=== PATIENT | female | born 1950 | race Caucasian/White ===

== ENCOUNTER 2019-03-29 10:59 | Inpatient (IN) | payer OTHER ==
[~2019-03-29] VITALS: Ht 161.3 cm; Wt 90.9 kg
[2019-03-29] MEDS ORDERED: IV NORMAL SALINE 1000ML BAG 1,000 ML IV SCH (11:49)
--- NOTE | 2019-03-29 11:56 | PHYS DOC ---
Past Medical History Past Medical History: Diabetes-Type II, Endometriosis, High Cholesterol, Other Additional Past Medical Histor: incontinence,hemochromatosis Past Surgical History: Other Additional Past Surgical Histo: bilat carpal tunnel,laparoscopy x 2 Alcohol Use: Occasionally Drug Use: None Adult General Chief Complaint Chief Complaint: ABDOMINAL PAIN HPI HPI Patient is a 68 year old Female who presents with right upper quadrant pain and generalized abdominal pain with diarrhea. Patient states she has some nausea but has not vomited. Patient states diarrhea has been going on for months. She states that she has a history of gallstones. Patient states she had a scheduled appointment with Dr. Schulz Wednesday for her gallstones any liver biopsy. Patient states today after she ate Cheerios with [id number] been having this right upper quadrant pain. Patient rates her pain a 10 out of 10. Review of Systems Review of Systems Constitutional: Denies fever or chills [] GI: abdominal pain, nausea, denies vomiting, bloody stools. + diarrhea [] All other systems were reviewed and found to be within normal limits, except as documented in this note. Current Medications Current Medications Current Medications Medications (Trade) Dose Ordered Sig/Denny Start Time Stop Time Status Last Admin Dose Admin Fentanyl Citrate (Fentanyl 2ml Vial) 50 mcg 1X ONCE 03/29/19 12:00 03/29/19 12:01 DC 03/29/19 12:27 50 MCG Info (CONTRAST GIVEN -- Rx MONITORING) 1 each PRN DAILY PRN 03/29/19 13:30 03/31/19 13:29 Iohexol (Omnipaque 300 Mg/ml) 75 ml 1X ONCE 03/29/19 13:30 03/29/19 13:31 DC 03/29/19 13:36 75 ML Ondansetron HCl (Zofran) 4 mg 1X ONCE 03/29/19 12:00 03/29/19 12:01 DC 03/29/19 12:27 4 MG Sodium Chloride 1,000 ml @ 1,000 mls/hr Q1H 03/29/19 11:49 03/29/19 12:48 DC 03/29/19 12:27 1,000 MLS/HR Allergies Allergies Allergies Coded Allergies Type Severity Reaction Last Updated Verified No Known Drug Allergies 03/29/19 No Physical Exam Physical Exam Constitutional: Well developed, well nourished, no acute distress, non-toxic appearance. [] Cardiovascular:Heart rate regular rhythm, no murmur [] Lungs & Thorax: Bilateral breath sounds clear to auscultation [] Abdomen: Bowel sounds normal, soft, RUQ, LUQ tenderness, no masses, no pulsatile masses. [] Skin: Warm, dry, no erythema, no rash. [] Back: No tenderness, no CVA tenderness. [] Extremities: No tenderness, no cyanosis, no clubbing, ROM intact, no edema. [] Neurologic: Alert and oriented X 3, normal motor function, normal sensory function, no focal deficits noted. [] Psychologic: Affect normal, judgement normal, mood normal. [] Current Patient Data Vital Signs Vital Signs Date Time Temp Pulse Resp B/P (MAP) Pulse Ox O2 Delivery O2 Flow Rate FiO2 03/29/19 12:27 20 96 Room Air 03/29/19 11:20 98.4 72 148/58 (88) 98.4 Lab Values Laboratory Tests Test 03/29/19 12:40 03/29/19 13:27 White Blood Count 7.9 x10^3/uL (4.0-11.0) Red Blood Count 4.20 x10^6/uL (3.50-5.40) Hemoglobin 13.3 g/dL (12.0-15.5) Hematocrit 39.4 % (36.0-47.0) Mean Corpuscular Volume 94 fL (79-100) Mean Corpuscular Hemoglobin 32 pg (25-35) Mean Corpuscular Hemoglobin Concent 34 g/dL (31-37) Red Cell Distribution Width 13.5 % (11.5-14.5) Platelet Count 92 x10^3/uL (140-400) L Neutrophils (%) (Auto) 75 % (31-73) H Lymphocytes (%) (Auto) 17 % (24-48) L Monocytes (%) (Auto) 6 % (0-9) Eosinophils (%) (Auto) 2 % (0-3) Basophils (%) (Auto) 1 % (0-3) Neutrophils # (Auto) 5.9 x10^3/uL (1.8-7.7) Lymphocytes # (Auto) 1.3 x10^3/uL (1.0-4.8) Monocytes # (Auto) 0.5 x10^3/uL (0.0-1.1) Eosinophils # (Auto) 0.1 x10^3/uL (0.0-0.7) Basophils # (Auto) 0.0 x10^3/uL (0.0-0.2) Sodium Level 142 mmol/L (136-145) Potassium Level 3.9 mmol/L (3.5-5.1) Chloride Level 105 mmol/L (98-107) Carbon Dioxide Level 22 mmol/L (21-32) Anion Gap 15 (6-14) H Blood Urea Nitrogen 16 mg/dL (7-20) Creatinine 0.9 mg/dL (0.6-1.0) Estimated GFR (Cockcroft-Gault) 62.1 BUN/Creatinine Ratio 18 (6-20) Glucose Level 224 mg/dL (70-99) H Calcium Level 8.8 mg/dL (8.5-10.1) Total Bilirubin 0.8 mg/dL (0.2-1.0) Aspartate Amino Transferase (AST) 29 U/L (15-37) Alanine Aminotransferase (ALT) 39 U/L (14-59) Alkaline Phosphatase 61 U/L (46-116) Troponin I Quantitative < 0.017 ng/mL (0.000-0.055) Total Protein 7.4 g/dL (6.4-8.2) Albumin 3.4 g/dL (3.4-5.0) Albumin/Globulin Ratio 0.9 (1.0-1.7) L Lipase 88 U/L (73-393) Urine Collection Type Unknown Urine Color Yellow Urine Clarity Clear Urine pH 5.0 Urine Specific Caspar 1.020 Urine Protein Negative mg/dL (NEG-TRACE) Urine Glucose (UA) 250 mg/dL (NEG) Urine Ketones (Stick) Negative mg/dL (NEG) Urine Blood Negative (NEG) Urine Nitrite Negative (NEG) Urine Bilirubin Negative (NEG) Urine Urobilinogen Dipstick 0.2 mg/dL (0.2 mg/dL) Urine Leukocyte Esterase Moderate (NEG) Urine RBC 0 /HPF (0-2) Urine WBC 5-10 /HPF (0-4) Urine Squamous Epithelial Cells Many /LPF Urine Bacteria Many /HPF (0-FEW) Urine Hyaline Casts Occasional /HPF Urine Mucus Marked /LPF Laboratory Tests 03/29/19 12:40 Laboratory Tests 03/29/19 12:40 EKG EKG Sinus Rhythm and no STEMI[] Interpretation Time: [address] Kirby Radiology/Procedures Radiology/Procedures [] Impressions: [facility] [address] [place] [address] IMAGING REPORT Signed PATIENT: ONEL RIOS ACCOUNT: [id number] : 1950 LOCATION: ER AGE: 68 SEX: F EXAM STATUS: REG ER ORD. PHYSICIAN: COLUMBA BLACKMON APRN REASON: PAIN RUQ AND LUQ, HX GALL STONES PROCEDURE: CT ABD PELV W/ IV CONTRST ONLY CT ABD PELV W/ IV CONTRST ONLY Indication: Right upper quadrant and left upper quadrant pain, history of gallstones Technique: Postcontrast CT imaging was performed of the abdomen pelvis, multiplanar reconstruction images submitted. No oral contrast was given. One or more of the following individualized dose reduction techniques were utilized for this examination: 1. Automated exposure control 2. Adjustment of the mA and/or kV according to patient size 3. Use of iterative reconstruction technique. Comparison: None Findings: There is appearance of enhancement of gallbladder montaño with adjacent pericholecystic fluid. There are some small calcified gallstones present. There is mild hazy change of the more central superior retroperitoneal fat as about the celiac axis. There is no focal defined fluid collection in this region. There is mild hazy and strandy change of the mesenteric fat, also of the paracolic gutters greater on the right. There is very minimal perihepatic free fluid. There is slightly nodular margin of the liver. Spleen is enlarged about 14 x 10.9 x 6.5 cm. Evaluation of bowel is limited without oral contrast. There is appearance of long segment small bowel wall thickening such as in the left abdomen, also appearance of wall thickening of the ascending colon and possibly minimally of the descending colon. There are some nodes near the lester hepatis and portacaval region, largest of these about 0.9 cm short axis dimension. There are multiple mesenteric nodes, largest of these about 0.9 cm short axis dimension. Bowel is not significantly dilated. No free air is identified. There is mild wall enhancement of segments of small bowel in the right pelvic region. Appendix is not confidently visualized. There is mild nonorganized free fluid in the pelvis greater on the right. There is multilevel lumbar facet degenerative change. There is degenerative disc disease and spondylosis L4-5. There is [id number] narrowing of the left L4-5 neural foramen, to a lesser degree on the right. IMPRESSION: 1. There are segments of bowel wall thickening such as small bowel in the left abdomen and also likely of the ascending colon as may be seen with enterocolitis. There is also enhancement of the gallbladder montaño with adjacent pericholecystic fluid which could be seen with cholecystitis in the appropriate clinical setting although nonspecific, especially given the presence of other mild free fluid in the abdomen and pelvis. There is mild hazy density retroperitoneal fat more centrally, pancreatitis not excluded for which correlation with correlation with laboratory findings advised. 2. There is nonspecific hazy density of the mesenteric fat, also multiple nodes although not considered significantly enlarged based on short axis dimension. 3. Appendix is not confidently identified on this exam. 4. There is slightly nodular appearance of the hepatic margin, could be seen with cirrhosis. There is splenomegaly, possibly due to portal hypertension given mild free fluid. Electronically signed by: Brittany Forrest MD (03/29/2019 1:57 PM) [id number] DICTATED and SIGNED BY: BRITTANY FORREST MD DATE: 03/29/19 1357 Course & Med Decision Making Course & Med Decision Making Patient is a 68 year old Female who presents with right upper quadrant pain and generalized abdominal pain with diarrhea. Patient states she has some nausea but has not vomited. Patient states diarrhea has been going on for months. She states that she has a history of gallstones. Patient states she had a scheduled appointment with Dr. Schulz Wednesday for her gallstones any liver biopsy. Patient states today after she ate Cheerios with [id number] been having this right upper quadrant pain. Patient rates her pain a 10 out of 10. Alert and oriented. Skin pink warm and dry. Patient has right upper quadrant and left upper quadrant tenderness with palpation. Abdomen is otherwise soft. Mucus membranes are moist. PERRLA. No extremity edema. Patient denies chest pain, shortness of air, dizziness, headache, fevers, dysuria symptoms, vomiting, numbness or tingling. Ambulatory with a steady gait. CT abd pelv shows: There are segments of bowel wall thickening such as small bowel in the left abdomen and also likely of the ascending colon as may be seen with enterocolitis. There is also enhancement of the gallbladder montaño with adjacent pericholecystic fluid which could be seen with cholecystitis in the appropriate clinical setting although nonspecific, especially given the presence of other mild free fluid in the abdomen and pelvis. There is mild hazy density retroperitoneal fat more centrally, pancreatitis not excluded for which correlation with correlation with laboratory findings advised. 2. There is nonspecific hazy density of the mesenteric fat, also multiple nodes although not considered significantly enlarged based on short axis dimension. 3. Appendix is not confidently identified on this exam. 4. There is slightly nodular appearance of the hepatic margin, could be seen with cirrhosis. There is splenomegaly, possibly due to portal hypertension given mild free fluid. Urinalysis shows infection. I have spoken to Dr. Hummel for admission. He'll consult GI and surgery. Dr. Hummel states to start patient on Flagyl and Cipro. I have spoken to Dr Ty and let him know the results of the CT scan. Dragon Disclaimer Dragon Disclaimer This electronic medical record was generated, in whole or in part, using a voice recognition dictation system. Departure Departure Impression: Primary Impression: Cholecystitis Additional Impressions: Enterocolitis UTI (urinary tract infection) Disposition: 09 ADMITTED INPATIENT Admitting Physician: ZHANE Condition: STABLE Referrals: IRINEO FOLRES MD (PCP) Problem Qualifiers Additional Impressions: UTI (urinary tract infection) Urinary tract infection type: acute cystitis Hematuria presence: without hematuria Qualified Codes: N30.00 - Acute cystitis without hematuria COLUMBA BLACKMON DIRECTOR OF THERAPY SERVICES Mar 29, 2019 11:55
--- NOTE | 2019-03-29 11:58 | EKG ---
[facility] [address] [place] [address] Test Date: 2019-03-29 Test Time: 11:38:31 Pat Name: ONEL RIOS Department: Room: Gender: F [employer] Rec[employer]: : 1950 Requested By: COLUMBA BLACKMON Order Number: [id number] Reading MD: Measurements Intervals Printer Rate: 73 P: 20 NH: 160 QRS: -16 QRSD: 88 T: 31 QT: 404 QTc: 449 Interpretive Statements SINUS RHYTHM LEFTWARD AXIS NO SPECIFIC ECG ABNORMALITIES RI6.01 No previous ECG available for comparison
[2019-03-29] MEDS ORDERED: fentaNYL PF VIAL 100 MCG/2 ML VIAL IV ONE (12:00)
[2019-03-29] MEDS ORDERED: ONDANSETRON PF 4 MG/2 ML VIAL. IV ONE (12:00)
[2019-03-29 12:59] LABS: BASO % 1 % (0-3); EOS # 0.1 x10^3/uL (0.0-0.7); EOS % 2 % (0-3); HEMATOCRIT 39.4 % (36.0-47.0); HEMOGLOBIN 13.3 g/dL (12.0-15.5); LYMPH # 1.3 x10^3/uL (1.0-4.8); LYMPH % 17 % (24-48); MEAN CORPUSCULAR HEMOGLOBIN 32 pg (25-35); MEAN CORPUSCULAR HGB CONC 34 g/dL (31-37); MEAN CORPUSCULAR VOLUME 94 fL (79-100); MONO # 0.5 x10^3/uL (0.0-1.1); MONO % 6 % (0-9); NEUT # 5.9 x10^3/uL (1.8-7.7); NEUT % 75 % (31-73); PLATELET COUNT 92 x10^3/uL (140-400); RED CELL DISTRIBUTION WIDTH 13.5 % (11.5-14.5); WHITE BLOOD COUNT 7.9 x10^3/uL (4.0-11.0)
[2019-03-29 13:08] LABS: CALCIUM 8.8 mg/dL (8.5-10.1); CREATININE 0.9 mg/dL (0.6-1.0); GFR 62.1; POTASSIUM 3.9 mmol/L (3.5-5.1)
[2019-03-29 13:21] LABS: ALBUMIN 3.4 g/dL (3.4-5.0); ALBUMIN/GLOBULIN RATIO 0.9 (1.0-1.7); TOTAL BILIRUBIN 0.8 mg/dL (0.2-1.0); TOTAL PROTEIN 7.4 g/dL (6.4-8.2)
[2019-03-29] MEDS ORDERED: IOHEXOL 300 MG/ML 100ML VIAL. IV ONE (13:30)
[2019-03-29] MEDS ORDERED: CONTRAST GIVEN. MC PRN (13:30)
[2019-03-29 13:56] LABS: BILIRUBIN,URINE NEGATIVE (NEG); CLARITY,URINE CLEAR; COLOR,URINE YELLOW; NITRITE,URINE NEGATIVE (NEG); PROTEIN,URINE NEGATIVE (NEG-TRACE); UROBILINOGEN,URINE 0.2 mg/dL (0.2 mg/dL)
--- NOTE | 2019-03-29 14:00 | RAD ---
CT ABD PELV W/ IV CONTRST ONLY Indication: Right upper quadrant and left upper quadrant pain, history of gallstones Technique: Postcontrast CT imaging was performed of the abdomen pelvis, multiplanar reconstruction images submitted. No oral contrast was given. One or more of the following individualized dose reduction techniques were utilized for this examination: 1. Automated exposure control 2. Adjustment of the mA and/or kV according to patient size 3. Use of iterative reconstruction technique. Comparison: None Findings: There is appearance of enhancement of gallbladder montaño with adjacent pericholecystic fluid. There are some small calcified gallstones present. There is mild hazy change of the more central superior retroperitoneal fat as about the celiac axis. There is no focal defined fluid collection in this region. There is mild hazy and strandy change of the mesenteric fat, also of the paracolic gutters greater on the right. There is very minimal perihepatic free fluid. There is slightly nodular margin of the liver. Spleen is enlarged about 14 x 10.9 x 6.5 cm. Evaluation of bowel is limited without oral contrast. There is appearance of long segment small bowel wall thickening such as in the left abdomen, also appearance of wall thickening of the ascending colon and possibly minimally of the descending colon. There are some nodes near the lester hepatis and portacaval region, largest of these about 0.9 cm short axis dimension. There are multiple mesenteric nodes, largest of these about 0.9 cm short axis dimension. Bowel is not significantly dilated. No free air is identified. There is mild wall enhancement of segments of small bowel in the right pelvic region. Appendix is not confidently visualized. There is mild nonorganized free fluid in the pelvis greater on the right. There is multilevel lumbar facet degenerative change. There is degenerative disc disease and spondylosis L4-5. There is [id number] narrowing of the left L4-5 neural foramen, to a lesser degree on the right. IMPRESSION: 1. There are segments of bowel wall thickening such as small bowel in the left abdomen and also likely of the ascending colon as may be seen with enterocolitis. There is also enhancement of the gallbladder montaño with adjacent pericholecystic fluid which could be seen with cholecystitis in the appropriate clinical setting although nonspecific, especially given the presence of other mild free fluid in the abdomen and pelvis. There is mild hazy density retroperitoneal fat more centrally, pancreatitis not excluded for which correlation with correlation with laboratory findings advised. 2. There is nonspecific hazy density of the mesenteric fat, also multiple nodes although not considered significantly enlarged based on short axis dimension. 3. Appendix is not confidently identified on this exam. 4. There is slightly nodular appearance of the hepatic margin, could be seen with cirrhosis. There is splenomegaly, possibly due to portal hypertension given mild free fluid. Electronically signed by: Yoseph Guillaume MD (03/29/2019 1:57 PM) [id number]
[2019-03-29 14:10] LABS: BACTERIA,URINE MANY /HPF (0-FEW); HYALINE CASTS, URINE OCCASIONAL /HPF; RBC,URINE 0 /HPF (0-2); SQUAMOUS EPITHELIAL CELL,UR MANY /LPF
[2019-03-29] MEDS ORDERED: ONDANSETRON PF 4 MG/2 ML VIAL. IV PRN (15:00)
[2019-03-29] MEDS ORDERED: CIPROFLOXACIN 400MG PREMIX 200 ML IV ONE (15:00)
[2019-03-29] MEDS ORDERED: fentaNYL PF VIAL 100 MCG/2 ML VIAL IV PRN (15:00)
[2019-03-29] MEDS ORDERED: ACETAMINOPHEN 325 MG TABLET. PO PRN (15:00)
[2019-03-29] MEDS ORDERED: IV NORMAL SALINE 1000ML BAG 1,000 ML IV ONE (15:15)
[2019-03-29 19:00] VITALS: BP 146/53
[2019-03-29] MEDS ORDERED: ASPI81TA50 PO (19:53)
[2019-03-29] MEDS ORDERED: ATOR40TA59 PO (19:53)
[2019-03-29] MEDS ORDERED: METF10007 PO (19:53)
[2019-03-29] MEDS ORDERED: GLIP5TAB10 PO (19:53)
[2019-03-29] MEDS ORDERED: OXYB5TAB7 PO (19:53)
--- NOTE | 2019-03-29 22:01 | HP ---
ADMIT DATE: 03/29/2019 CHIEF COMPLAINT: Nausea, vomiting and abdominal pain. HISTORY OF PRESENT ILLNESS: The patient is a pleasant 68-year-old female who has known gallstones. She is scheduled to see Dr. Schulz in the near future, but her symptoms have just gotten too bad. I discussed the case with ER physician. We are going to admit the patient. We are consulting Dr. Schulz. It should be noted that she also has a UTI and will be given IV antibiotics and fluids. PAST MEDICAL HISTORY: Known gallstones and diabetes and hemochromatosis. ALLERGIES: None. FAMILY HISTORY: Diabetes. SOCIAL HISTORY: She does not drink, smoke or take drugs. MEDICATIONS: Reviewed, please refer to the MRAD. REVIEW OF SYSTEMS: GENERAL: No history of weight change, weakness or fevers. SKIN: No bruising, hair changes or rashes. EYES: No blurred, double or loss of vision. NOSE AND THROAT: No history of nosebleeds, hoarseness or sore throat. HEART: No history of palpitations, chest pain or shortness of breath on exertion. LUNGS: Denies cough, hemoptysis, wheezing or shortness of breath. GASTROINTESTINAL: She complained of abdominal pain and nausea. GENITOURINARY: No history of frequency, urgency, hesitancy or nocturia. NEUROLOGIC: Denies history of numbness, tingling, tremor or weakness. PSYCHIATRIC: No history of panic, anxiety or depression. ENDOCRINE: No history of heat or cold intolerance, polyuria or polydipsia. EXTREMITIES: Denies muscle weakness, joint pain, pain on walking or stiffness. PHYSICAL EXAMINATION: VITALS: Within normal limits and are stable. GENERAL: No apparent distress. Alert and oriented. HEENT: Head is normocephalic, atraumatic, pupils were equally round and reactive to light and accommodation. NECK: Supple, no JVD, no thyromegaly was noted. LUNGS: Clear to auscultation in all lung frances without rhonchi or wheezing. HEART: RRR, S1, S2 present. Peripheral pulses intact, no obvious murmurs were noted. ABDOMEN: Soft, nontender. Positive bowel sounds no organomegaly, normal bowel sounds. EXTREMITIES: Without any cyanosis, clubbing, or edema. Pedal pulses intact, Homans sign is negative. NEUROLOGIC: Normal speech, normal tone. A & O x3, moves all extremities, no obvious focal deficits. PSYCHIATRIC: Normal affect, normal mood. Stable. SKIN: No ulcerations or rashes, good skin turgor, no jaundice. VASCULAR: Good capillary refill, neurovascular bundle appears to be intact. LABORATORY DATA: Urinalysis shows leukocyte esterase positive and white cells, positive. White count 7.9. Electrolytes are normal. ASSESSMENT AND PLAN: Symptomatic gallstones an incidental finding of the urinary tract infection. The patient has been admitted. We will give IV fluids, IV antibiotics, consult Dr. Schulz. DVT prophylaxis. Home meds, p.r.n. Zofran, p.r.n. narcotics. KRISTI SONG DO DR: ALEXIS/abena JOB#: [id number] / [id number]
[2019-03-29 23:00] VITALS: BP 125/58
[2019-03-30] VITALS (14 sets, daily range): BP systolic 98–159; BP diastolic 38–81
--- NOTE | 2019-03-30 08:15 | PDOC2 ---
CONSULT Date of Consult Date of Consult DATE: 03/30/19 TIME: 08:11 Reason for Consult Reason for Consult: Right upper quadrant abdominal pain Referring Physician Referring Physician: Estephanie Identification/Chief Complaint Chief Complaint Abdominal pain Source Source: Patient History of Present Illness Reason for Visit: 68-year-old female with a history of hemachromatosis recently was having right upper quadrant abdominal pain postprandial nausea CT scan showed thickened gallbladder wall with some pericholecystic fluid as well as cholelithiasis. She states pain is been getting worse over the last several days that's what brought her to the emergency department. She also states that she has loose stools intermittently. She's had a recent colonoscopy by Dr. Wright which was normal according to the patient. Past Medical History Cardiovascular: No pertinent hx Pulmonary: No pertinent hx GI: Other Heme/Onc: Hemochromatosis (gallstones) Hepatobiliary: Cholelithiasis Rheumatologic: No pertinent hx Infectious disease: No pertinent hx ENT: No pertinent hx Renal/: No pertinent hx Endocrine: No pertinent hx Dermatology: No pertinent hx Past Surgical History Past Surgical History: Other (diagnostic laparoscopy for endometriosis) Family History Family History: No Significant Social History No ALCOHOL: none Lives: with Family Current Problem List Problem List Problems Medical Problems: (1) Cholecystitis Status: Acute (2) Enterocolitis Status: Acute (3) UTI (urinary tract infection) Status: Acute Current Medications Current Medications Current Medications Sodium Chloride 1,000 ml @ 1,000 mls/hr Q1H IV Last administered on 03/29/19at 12:27; Start 03/29/19 at 11:49; Stop 03/29/19 at 12:48; Status DC Fentanyl Citrate (Fentanyl 2ml Vial) 50 mcg 1X ONCE IV Last administered on 03/29/19at 12:27; Start 03/29/19 at 12:00; Stop 03/29/19 at 12:01; Status DC Ondansetron HCl (Zofran) 4 mg 1X ONCE IV Last administered on 03/29/19at 12:27; Start 03/29/19 at 12:00; Stop 03/29/19 at 12:01; Status DC Iohexol (Omnipaque 300 Mg/ml) 75 ml 1X ONCE IV Last administered on 03/29/19at 13:36; Start 03/29/19 at 13:30; Stop 03/29/19 at 13:31; Status DC Info (CONTRAST GIVEN -- Rx MONITORING) 1 each PRN DAILY PRN MC SEE COMMENTS; Start 03/29/19 at 13:30; Stop 03/31/19 at 13:29 Ondansetron HCl (Zofran) 4 mg PRN Q8HRS PRN IV NAUSEA/VOMITING; Start 03/29/19 at 15:00; Stop 03/30/19 at 14:59 Fentanyl Citrate (Fentanyl 2ml Vial) 50 mcg PRN Q1HR PRN IV PAIN; Start 03/29/19 at 15:00; Stop 03/30/19 at 14:59 Acetaminophen (Tylenol) 650 mg PRN Q4HRS PRN PO FEVER; Start 03/29/19 at 15:00; Stop 03/30/19 at 14:59 Metronidazole 100 ml @ 100 mls/hr 1X ONCE IV Last administered on 03/29/19at 19:03; Start 03/29/19 at 15:00; Stop 03/29/19 at 15:59; Status DC Ciprofloxacin/ Dextrose 200 ml @ 200 mls/hr 1X ONCE IV Last administered on 03/29/19at 15:58; Start 03/29/19 at 15:00; Stop 03/29/19 at 15:59; Status DC Sodium Chloride 1,000 ml @ 75 mls/hr 1X ONCE IV Last administered on at 15:57; Start 03/29/19 at 15:15; Stop 03/30/19 at 04:34; Status DC Active Scripts Active Reported Oxybutynin Chloride 5 Mg Tablet 1 Tab PO BID Aspir-Low (Aspirin) 81 Mg Tablet. 1 Tab PO DAILY Glipizide 5 Mg Tablet 5 Mg PO DAILY Atorvastatin Calcium 40 Mg Tablet 40 Mg PO BID Metformin Hcl 1,000 Mg Tablet 1,000 Mg PO BIDWMEALS Allergies Allergies: Coded Allergies: No Known Drug Allergies (Unverified , 03/29/19) ROS Gastrointestinal: Yes Nausea, Yes Abdominal Pain, Yes Diarrhea Physical Exam General: Alert, Oriented X3, Cooperative, mild distress HEENT: Atraumatic, PERRLA, EOMI Lungs: Clear to auscultation, Normal air movement Heart: Regular rate Abdomen: Normal bowel sounds, Soft, Other (tender to palpation right upper quadrant) Extremities: No edema Skin: No significant lesion Neuro: Normal speech Psych/Mental Status: Mental status NL Vitals VITALS Vital Signs Date Time Temp Pulse Resp B/P (MAP) Pulse Ox O2 Delivery O2 Flow Rate FiO2 03/30/19 07:00 97.7 55 18 130/52 (78) 94 Room Air 97.7 Labs Labs Laboratory Tests Test 03/29/19 12:40 03/29/19 13:27 White Blood Count 7.9 x10^3/uL (4.0-11.0) Red Blood Count 4.20 x10^6/uL (3.50-5.40) Hemoglobin 13.3 g/dL (12.0-15.5) Hematocrit 39.4 % (36.0-47.0) Mean Corpuscular Volume 94 fL (79-100) Mean Corpuscular Hemoglobin 32 pg (25-35) Mean Corpuscular Hemoglobin Concent 34 g/dL (31-37) Red Cell Distribution Width 13.5 % (11.5-14.5) Platelet Count 92 x10^3/uL (140-400) Neutrophils (%) (Auto) 75 % (31-73) Lymphocytes (%) (Auto) 17 % (24-48) Monocytes (%) (Auto) 6 % (0-9) Eosinophils (%) (Auto) 2 % (0-3) Basophils (%) (Auto) 1 % (0-3) Neutrophils # (Auto) 5.9 x10^3/uL (1.8-7.7) Lymphocytes # (Auto) 1.3 x10^3/uL (1.0-4.8) Monocytes # (Auto) 0.5 x10^3/uL (0.0-1.1) Eosinophils # (Auto) 0.1 x10^3/uL (0.0-0.7) Basophils # (Auto) 0.0 x10^3/uL (0.0-0.2) Sodium Level 142 mmol/L (136-145) Potassium Level 3.9 mmol/L (3.5-5.1) Chloride Level 105 mmol/L (98-107) Carbon Dioxide Level 22 mmol/L (21-32) Anion Gap 15 (6-14) Blood Urea Nitrogen 16 mg/dL (7-20) Creatinine 0.9 mg/dL (0.6-1.0) Estimated GFR (Cockcroft-Gault) 62.1 BUN/Creatinine Ratio 18 (6-20) Glucose Level 224 mg/dL (70-99) Calcium Level 8.8 mg/dL (8.5-10.1) Total Bilirubin 0.8 mg/dL (0.2-1.0) Aspartate Amino Transf (AST/SGOT) 29 U/L (15-37) Alanine Aminotransferase (ALT/SGPT) 39 U/L (14-59) Alkaline Phosphatase 61 U/L (46-116) Troponin I Quantitative < 0.017 ng/mL (0.000-0.055) Total Protein 7.4 g/dL (6.4-8.2) Albumin 3.4 g/dL (3.4-5.0) Albumin/Globulin Ratio 0.9 (1.0-1.7) Lipase 88 U/L (73-393) Urine Collection Type Unknown Urine Color Yellow Urine Clarity Clear Urine pH 5.0 Urine Specific [place] 1.020 Urine Protein Negative mg/dL (NEG-TRACE) Urine Glucose (UA) 250 mg/dL (NEG) Urine Ketones (Stick) Negative mg/dL (NEG) Urine Blood Negative (NEG) Urine Nitrite Negative (NEG) Urine Bilirubin Negative (NEG) Urine Urobilinogen Dipstick 0.2 mg/dL (0.2 mg/dL) Urine Leukocyte Esterase Moderate (NEG) Urine RBC 0 /HPF (0-2) Urine WBC 5-10 /HPF (0-4) Urine Squamous Epithelial Cells Many /LPF Urine Bacteria Many /HPF (0-FEW) Urine Hyaline Casts Occasional /HPF Urine Mucus Marked /LPF Laboratory Tests Test 03/29/19 12:40 03/29/19 13:27 White Blood Count 7.9 x10^3/uL (4.0-11.0) Red Blood Count 4.20 x10^6/uL (3.50-5.40) Hemoglobin 13.3 g/dL (12.0-15.5) Hematocrit 39.4 % (36.0-47.0) Mean Corpuscular Volume 94 fL (79-100) Mean Corpuscular Hemoglobin 32 pg (25-35) Mean Corpuscular Hemoglobin Concent 34 g/dL (31-37) Red Cell Distribution Width 13.5 % (11.5-14.5) Platelet Count 92 x10^3/uL (140-400) Neutrophils (%) (Auto) 75 % (31-73) Lymphocytes (%) (Auto) 17 % (24-48) Monocytes (%) (Auto) 6 % (0-9) Eosinophils (%) (Auto) 2 % (0-3) Basophils (%) (Auto) 1 % (0-3) Neutrophils # (Auto) 5.9 x10^3/uL (1.8-7.7) Lymphocytes # (Auto) 1.3 x10^3/uL (1.0-4.8) Monocytes # (Auto) 0.5 x10^3/uL (0.0-1.1) Eosinophils # (Auto) 0.1 x10^3/uL (0.0-0.7) Basophils # (Auto) 0.0 x10^3/uL (0.0-0.2) Sodium Level 142 mmol/L (136-145) Potassium Level 3.9 mmol/L (3.5-5.1) Chloride Level 105 mmol/L (98-107) Carbon Dioxide Level 22 mmol/L (21-32) Anion Gap 15 (6-14) Blood Urea Nitrogen 16 mg/dL (7-20) Creatinine 0.9 mg/dL (0.6-1.0) Estimated GFR (Cockcroft-Gault) 62.1 BUN/Creatinine Ratio 18 (6-20) Glucose Level 224 mg/dL (70-99) Calcium Level 8.8 mg/dL (8.5-10.1) Total Bilirubin 0.8 mg/dL (0.2-1.0) Aspartate Amino Transf (AST/SGOT) 29 U/L (15-37) Alanine Aminotransferase (ALT/SGPT) 39 U/L (14-59) Alkaline Phosphatase 61 U/L (46-116) Troponin I Quantitative < 0.017 ng/mL (0.000-0.055) Total Protein 7.4 g/dL (6.4-8.2) Albumin 3.4 g/dL (3.4-5.0) Albumin/Globulin Ratio 0.9 (1.0-1.7) Lipase 88 U/L (73-393) Urine Collection Type Unknown Urine Color Yellow Urine Clarity Clear Urine pH 5.0 Urine Specific [place] 1.020 Urine Protein Negative mg/dL (NEG-TRACE) Urine Glucose (UA) 250 mg/dL (NEG) Urine Ketones (Stick) Negative mg/dL (NEG) Urine Blood Negative (NEG) Urine Nitrite Negative (NEG) Urine Bilirubin Negative (NEG) Urine Urobilinogen Dipstick 0.2 mg/dL (0.2 mg/dL) Urine Leukocyte Esterase Moderate (NEG) Urine RBC 0 /HPF (0-2) Urine WBC 5-10 /HPF (0-4) Urine Squamous Epithelial Cells Many /LPF Urine Bacteria Many /HPF (0-FEW) Urine Hyaline Casts Occasional /HPF Urine Mucus Marked /LPF Images Images CT scan as in the history of present illness Assessment/Plan Assessment/Plan Chronic cholecystitis with cholelithiasis normal LFTs history of hemachromatosis Plan for laparoscopic cholecystectomy and liver biopsy MELODY CABRAL MD Mar 30, 2019 08:15
[2019-03-30] MEDS ORDERED: IV RINGERS,LACTATED 1000ML 1,000 ML IV SCH (08:21)
[2019-03-30] MEDS ORDERED: LIDOCAINE 1% PF 2 ML VIAL. ID PRN (08:30)
[2019-03-30] MEDS ORDERED: HYDROmorphone 2 MG/ML VIAL IV PRN (08:30)
[2019-03-30] MEDS ORDERED: PROCHLORPERAZINE 10 MG/2 ML VIAL. IV PRN (08:30)
[2019-03-30] MEDS ORDERED: ONDANSETRON PF 4 MG/2 ML VIAL. IV PRN (08:30)
[2019-03-30] MEDS ORDERED: fentaNYL PF VIAL 100 MCG/2 ML VIAL IV PRN (08:30)
[2019-03-30] MEDS ORDERED: cloNIDine HCL 0.1 MG TABLET PO PRN (08:45)
[2019-03-30] MEDS ORDERED: oxyCODONE/APAP 5/325 1 TAB TABLET PO PRN ×2 (08:45→15:15)
[2019-03-30] MEDS: OXYBUTYNIN CHLORIDE 5 MG TABLET PO SCH ×2 (09:00→20:44)
--- NOTE | 2019-03-30 09:44 | PDOC2 ---
GI CONSULT Reason For Consult: Enterocolitis HPI: HPI: 68 y/o female admitted through ER. Had appt to see Dr. Schulz to discuss cholecystectomy but came to ER instead. Has plans for cholecystectomy and liver biopsy today. Tells me at least a decade of intermittent lower abdominal cramping and loose/watery stools. Gradually getting worse w/ more frequent attacks. Sometimes set off by certain foods (salads, cottage cheese, rich foods, cereal). In between attacks sometimes has days of no stools but usually "is regular" with normal formed stool QOD. No hematochezia or melena. No change in appetite or weight loss. No heartburn/reflux. Does often feel "full" and sometimes food "sits" in epigastric region. Occasional nausea during attacks but no vomiting. No upper abdominal pain. No previous EGD. Colonoscopy w/ Dr. Aleman in 01/2019 for diarrhea and cramping - says she thinks it showed some polyps. After that, had an abd US (?at [facility]) which reportedly showed gallstones, fatty liver, and enlarged spleen. Diagnosed w/ hemochromatosis about 10 years ago, had phlebotomy a couple times in [place] (moved here in 09/2018). No pancreas or PUD history. Occasional ibuprofen for headaches. Was previously on daily ASA but stopped due to easy bruising. H/o DM on metformin for 10 years - admits to having diarrhea when started this but feels chronic issues are unrelated. PMH: PMH: DM, HLD, anxiety, urinary incontinence, colon polyps bilateral cataract removal, bilateral CTR, laparotomy and laparoscopy for endometriosis FH: Family History: No pertinent hx (denies GI cancers, GB disease, and liver disease - does not know about father's side) Social History: Smoke: No ALCOHOL: rare Drugs: None ROS: GEN: Denies fevers, chills, sweats HEENT: Denies blurred vision, sore throat CV: Denies chest pain RESP: Denies shortness of air, cough GI: Per HPI : Denies hematuria, dysuria ENDO: Denies weight changes NEURO: Denies confusion, dizziness MSK: Denies weakness, joint pain/swelling SKIN: +bruising Vitals: Vitals: Vital Signs Date Time Temp Pulse Resp B/P (MAP) Pulse Ox O2 Delivery O2 Flow Rate FiO2 03/30/19 07:00 97.7 55 18 130/52 (78) 94 Room Air 97.7 Labs: Labs: Laboratory Tests Test 03/29/19 12:40 03/29/19 13:27 White Blood Count 7.9 x10^3/uL (4.0-11.0) Red Blood Count 4.20 x10^6/uL (3.50-5.40) Hemoglobin 13.3 g/dL (12.0-15.5) Hematocrit 39.4 % (36.0-47.0) Mean Corpuscular Volume 94 fL (79-100) Mean Corpuscular Hemoglobin 32 pg (25-35) Mean Corpuscular Hemoglobin Concent 34 g/dL (31-37) Red Cell Distribution Width 13.5 % (11.5-14.5) Platelet Count 92 x10^3/uL (140-400) Neutrophils (%) (Auto) 75 % (31-73) Lymphocytes (%) (Auto) 17 % (24-48) Monocytes (%) (Auto) 6 % (0-9) Eosinophils (%) (Auto) 2 % (0-3) Basophils (%) (Auto) 1 % (0-3) Neutrophils # (Auto) 5.9 x10^3/uL (1.8-7.7) Lymphocytes # (Auto) 1.3 x10^3/uL (1.0-4.8) Monocytes # (Auto) 0.5 x10^3/uL (0.0-1.1) Eosinophils # (Auto) 0.1 x10^3/uL (0.0-0.7) Basophils # (Auto) 0.0 x10^3/uL (0.0-0.2) Sodium Level 142 mmol/L (136-145) Potassium Level 3.9 mmol/L (3.5-5.1) Chloride Level 105 mmol/L (98-107) Carbon Dioxide Level 22 mmol/L (21-32) Anion Gap 15 (6-14) Blood Urea Nitrogen 16 mg/dL (7-20) Creatinine 0.9 mg/dL (0.6-1.0) Estimated GFR (Cockcroft-Gault) 62.1 BUN/Creatinine Ratio 18 (6-20) Glucose Level 224 mg/dL (70-99) Calcium Level 8.8 mg/dL (8.5-10.1) Total Bilirubin 0.8 mg/dL (0.2-1.0) Aspartate Amino Transf (AST/SGOT) 29 U/L (15-37) Alanine Aminotransferase (ALT/SGPT) 39 U/L (14-59) Alkaline Phosphatase 61 U/L (46-116) Troponin I Quantitative < 0.017 ng/mL (0.000-0.055) Total Protein 7.4 g/dL (6.4-8.2) Albumin 3.4 g/dL (3.4-5.0) Albumin/Globulin Ratio 0.9 (1.0-1.7) Lipase 88 U/L (73-393) Urine Collection Type Unknown Urine Color Yellow Urine Clarity Clear Urine pH 5.0 Urine Specific [place] 1.020 Urine Protein Negative mg/dL (NEG-TRACE) Urine Glucose (UA) 250 mg/dL (NEG) Urine Ketones (Stick) Negative mg/dL (NEG) Urine Blood Negative (NEG) Urine Nitrite Negative (NEG) Urine Bilirubin Negative (NEG) Urine Urobilinogen Dipstick 0.2 mg/dL (0.2 mg/dL) Urine Leukocyte Esterase Moderate (NEG) Urine RBC 0 /HPF (0-2) Urine WBC 5-10 /HPF (0-4) Urine Squamous Epithelial Cells Many /LPF Urine Bacteria Many /HPF (0-FEW) Urine Hyaline Casts Occasional /HPF Urine Mucus Marked /LPF Allergies: Coded Allergies: No Known Drug Allergies (Unverified , 03/29/19) Medications: Current Medications Medications (Trade) Dose Ordered Sig/Denny Route PRN Reason Start Time Stop Time Status Last Admin Dose Admin Sodium Chloride 1,000 ml @ 1,000 mls/hr Q1H IV 03/29/19 11:49 03/29/19 12:48 DC 03/29/19 12:27 Fentanyl Citrate (Fentanyl 2ml Vial) 50 mcg 1X ONCE IV 03/29/19 12:00 03/29/19 12:01 DC 03/29/19 12:27 Ondansetron HCl (Zofran) 4 mg 1X ONCE IV 03/29/19 12:00 03/29/19 12:01 DC 03/29/19 12:27 Iohexol (Omnipaque 300 Mg/ml) 75 ml 1X ONCE IV 03/29/19 13:30 03/29/19 13:31 DC 03/29/19 13:36 Metronidazole 100 ml @ 100 mls/hr 1X ONCE IV 03/29/19 15:00 03/29/19 15:59 DC 03/29/19 19:03 Ciprofloxacin/ Dextrose 200 ml @ 200 mls/hr 1X ONCE IV 03/29/19 15:00 03/29/19 15:59 DC 03/29/19 15:58 Sodium Chloride 1,000 ml @ 75 mls/hr 1X ONCE IV 03/29/19 15:15 03/30/19 04:34 DC 03/29/19 15:57 Imaging: Imaging: CT A/P Findings: There is appearance of enhancement of gallbladder montaño with adjacent pericholecystic fluid. There are some small calcified gallstones present. There is mild hazy change of the more central superior retroperitoneal fat as about the celiac axis. There is no focal defined fluid collection in this region. There is mild hazy and strandy change of the mesenteric fat, also of the paracolic gutters greater on the right. There is very minimal perihepatic free fluid. There is slightly nodular margin of the liver. Spleen is enlarged about 14 x 10.9 x 6.5 cm. Evaluation of bowel is limited without oral contrast. There is appearance of long segment small bowel wall thickening such as in the left abdomen, also appearance of wall thickening of the ascending colon and possibly minimally of the descending colon. There are some nodes near the lester hepatis and portacaval region, largest of these about 0.9 cm short axis dimension. There are multiple mesenteric nodes, largest of these about 0.9 cm short axis dimension. Bowel is not significantly dilated. No free air is identified. There is mild wall enhancement of segments of small bowel in the right pelvic region. Appendix is not confidently visualized. There is mild nonorganized free fluid in the pelvis greater on the right. There is multilevel lumbar facet degenerative change. There is degenerative disc disease and spondylosis L4-5. There is [id number] narrowing of the left L4-5 neural foramen, to a lesser degree on the right. IMPRESSION: 1. There are segments of bowel wall thickening such as small bowel in the left abdomen and also likely of the ascending colon as may be seen with enterocolitis. There is also enhancement of the gallbladder montaño with adjacent pericholecystic fluid which could be seen with cholecystitis in the appropriate clinical setting although nonspecific, especially given the presence of other mild free fluid in the abdomen and pelvis. There is mild hazy density retroperitoneal fat more centrally, pancreatitis not excluded for which correlation with correlation with laboratory findings advised. 2. There is nonspecific hazy density of the mesenteric fat, also multiple nodes although not considered significantly enlarged based on short axis dimension. 3. Appendix is not confidently identified on this exam. 4. There is slightly nodular appearance of the hepatic margin, could be seen with cirrhosis. There is splenomegaly, possibly due to portal hypertension given mild free fluid. PE: GEN: NAD HEENT: Atraumatic, PERRL LUNGS: CTAB HEART: RRR ABD: NABS, S/ND/NT, large EXTREMITY: No edema SKIN: No rashes, no jaundice NEURO/PSYCH: A & O �3 A/P: A/P: Chronic/intermittent lower abd pain and diarrhea Early satiety Thrombocytopenia Abnormal CT - cholelithiasis and possible cholecystitis, segments of ascending colon and SB thickening, hazy density of mesenteric fat, possible cirrhosis, splenomegaly ---> received Cipro and Flagyl in ER Hemochromatosis CRC screen - UTD DM/hyperglycemia -- Plans for cholecystectomy and liver biopsy - proceed per Dr. Ty. Unclear significance of SB and colon findings on CT. GI symptoms are chronic (for a decade) but worsening. Will ask for colonoscopy records and outpt US report. 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 ?still having diarrhea - check stool studies for completeness SCOTTY LOPEZ Mar 30, 2019 09:44
[2019-03-30 09:51] LABS: PROTHROMBIN TIME PATIENT 14.3 SEC (11.7-14.0)
--- NOTE | 2019-03-30 10:17 | PDOC ---
PROGRESS NOTES Chief Complaint Chief Complaint Cholecystitis - thickened GB wall Enterocolitis with diarrhea Known hemochromatoses (blood work, not liver biopsy) Obesity BMI 34 mod pcm UTI Glucosuria History of Present Illness History of Present Illness NO pain For lap orestes later dc hemochromatoses by DR rudd yrs ago but not thru liver biopsy but thru bloodwork PT relays plans of liver biopsy also today while lap orestes HAs UTI based on UA and got only a dose abx Glucosuria too - dm>? PLAN: NPO, med surg, 2 MN PPI and IVF while NPO liver biopsy planned but not ordered yet COnt cipro for uti (also will ocver enterocolitis) Diarrhea is slowing down Urine cx FULL CODE NO pT needs seemingly labs post op Check [id number] Vitals Vitals Vital Signs Date Time Temp Pulse Resp B/P (MAP) Pulse Ox O2 Delivery O2 Flow Rate FiO2 03/30/19 07:00 97.7 55 18 130/52 (78) 94 Room Air 97.7 Physical Exam General: Alert, Oriented X3, Cooperative, mild distress Heart: Regular rate, Normal S1, Normal S2, No murmurs Lungs: Clear Abdomen: Normal bowel sounds, Soft, No tenderness, Other (tender to palpation right upper quadrant) Extremities: No clubbing, No cyanosis, No edema Skin: No rashes, No breakdown, No significant lesion Labs LABS Laboratory Tests Test 03/29/19 12:40 03/29/19 13:27 03/30/19 09:21 White Blood Count 7.9 x10^3/uL (4.0-11.0) Red Blood Count 4.20 x10^6/uL (3.50-5.40) Hemoglobin 13.3 g/dL (12.0-15.5) Hematocrit 39.4 % (36.0-47.0) Mean Corpuscular Volume 94 fL (79-100) Mean Corpuscular Hemoglobin 32 pg (25-35) Mean Corpuscular Hemoglobin Concent 34 g/dL (31-37) Red Cell Distribution Width 13.5 % (11.5-14.5) Platelet Count 92 x10^3/uL (140-400) Neutrophils (%) (Auto) 75 % (31-73) Lymphocytes (%) (Auto) 17 % (24-48) Monocytes (%) (Auto) 6 % (0-9) Eosinophils (%) (Auto) 2 % (0-3) Basophils (%) (Auto) 1 % (0-3) Neutrophils # (Auto) 5.9 x10^3/uL (1.8-7.7) Lymphocytes # (Auto) 1.3 x10^3/uL (1.0-4.8) Monocytes # (Auto) 0.5 x10^3/uL (0.0-1.1) Eosinophils # (Auto) 0.1 x10^3/uL (0.0-0.7) Basophils # (Auto) 0.0 x10^3/uL (0.0-0.2) Sodium Level 142 mmol/L (136-145) Potassium Level 3.9 mmol/L (3.5-5.1) Chloride Level 105 mmol/L (98-107) Carbon Dioxide Level 22 mmol/L (21-32) Anion Gap 15 (6-14) Blood Urea Nitrogen 16 mg/dL (7-20) Creatinine 0.9 mg/dL (0.6-1.0) Estimated GFR (Cockcroft-Gault) 62.1 BUN/Creatinine Ratio 18 (6-20) Glucose Level 224 mg/dL (70-99) Calcium Level 8.8 mg/dL (8.5-10.1) Total Bilirubin 0.8 mg/dL (0.2-1.0) Aspartate Amino Transf (AST/SGOT) 29 U/L (15-37) Alanine Aminotransferase (ALT/SGPT) 39 U/L (14-59) Alkaline Phosphatase 61 U/L (46-116) Troponin I Quantitative < 0.017 ng/mL (0.000-0.055) Total Protein 7.4 g/dL (6.4-8.2) Albumin 3.4 g/dL (3.4-5.0) Albumin/Globulin Ratio 0.9 (1.0-1.7) Lipase 88 U/L (73-393) Urine Collection Type Unknown Urine Color Yellow Urine Clarity Clear Urine pH 5.0 Urine Specific [place] 1.020 Urine Protein Negative mg/dL (NEG-TRACE) Urine Glucose (UA) 250 mg/dL (NEG) Urine Ketones (Stick) Negative mg/dL (NEG) Urine Blood Negative (NEG) Urine Nitrite Negative (NEG) Urine Bilirubin Negative (NEG) Urine Urobilinogen Dipstick 0.2 mg/dL (0.2 mg/dL) Urine Leukocyte Esterase Moderate (NEG) Urine RBC 0 /HPF (0-2) Urine WBC 5-10 /HPF (0-4) Urine Squamous Epithelial Cells Many /LPF Urine Bacteria Many /HPF (0-FEW) Urine Hyaline Casts Occasional /HPF Urine Mucus Marked /LPF Prothrombin Time 14.3 SEC (11.7-14.0) Prothromb Time International Ratio 1.1 (0.8-1.1) Review of Systems Review of Systems no abd pain, loose stools coming down, no nv,d,, cp, soa or fevers Assessment and Plan Assessmemt and Plan Problems Medical Problems: (1) Cholecystitis Status: Acute (2) Enterocolitis Status: Acute (3) UTI (urinary tract infection) Status: Acute Comment Review of Relevant I have reviewed the following items tori (where applicable) has been applied. Labs Laboratory Tests Test 03/29/19 12:40 03/29/19 13:27 03/30/19 09:21 White Blood Count 7.9 x10^3/uL (4.0-11.0) Red Blood Count 4.20 x10^6/uL (3.50-5.40) Hemoglobin 13.3 g/dL (12.0-15.5) Hematocrit 39.4 % (36.0-47.0) Mean Corpuscular Volume 94 fL (79-100) Mean Corpuscular Hemoglobin 32 pg (25-35) Mean Corpuscular Hemoglobin Concent 34 g/dL (31-37) Red Cell Distribution Width 13.5 % (11.5-14.5) Platelet Count 92 x10^3/uL (140-400) Neutrophils (%) (Auto) 75 % (31-73) Lymphocytes (%) (Auto) 17 % (24-48) Monocytes (%) (Auto) 6 % (0-9) Eosinophils (%) (Auto) 2 % (0-3) Basophils (%) (Auto) 1 % (0-3) Neutrophils # (Auto) 5.9 x10^3/uL (1.8-7.7) Lymphocytes # (Auto) 1.3 x10^3/uL (1.0-4.8) Monocytes # (Auto) 0.5 x10^3/uL (0.0-1.1) Eosinophils # (Auto) 0.1 x10^3/uL (0.0-0.7) Basophils # (Auto) 0.0 x10^3/uL (0.0-0.2) Sodium Level 142 mmol/L (136-145) Potassium Level 3.9 mmol/L (3.5-5.1) Chloride Level 105 mmol/L (98-107) Carbon Dioxide Level 22 mmol/L (21-32) Anion Gap 15 (6-14) Blood Urea Nitrogen 16 mg/dL (7-20) Creatinine 0.9 mg/dL (0.6-1.0) Estimated GFR (Cockcroft-Gault) 62.1 BUN/Creatinine Ratio 18 (6-20) Glucose Level 224 mg/dL (70-99) Calcium Level 8.8 mg/dL (8.5-10.1) Total Bilirubin 0.8 mg/dL (0.2-1.0) Aspartate Amino Transf (AST/SGOT) 29 U/L (15-37) Alanine Aminotransferase (ALT/SGPT) 39 U/L (14-59) Alkaline Phosphatase 61 U/L (46-116) Troponin I Quantitative < 0.017 ng/mL (0.000-0.055) Total Protein 7.4 g/dL (6.4-8.2) Albumin 3.4 g/dL (3.4-5.0) Albumin/Globulin Ratio 0.9 (1.0-1.7) Lipase 88 U/L (73-393) Urine Collection Type Unknown Urine Color Yellow Urine Clarity Clear Urine pH 5.0 Urine Specific [place] 1.020 Urine Protein Negative mg/dL (NEG-TRACE) Urine Glucose (UA) 250 mg/dL (NEG) Urine Ketones (Stick) Negative mg/dL (NEG) Urine Blood Negative (NEG) Urine Nitrite Negative (NEG) Urine Bilirubin Negative (NEG) Urine Urobilinogen Dipstick 0.2 mg/dL (0.2 mg/dL) Urine Leukocyte Esterase Moderate (NEG) Urine RBC 0 /HPF (0-2) Urine WBC 5-10 /HPF (0-4) Urine Squamous Epithelial Cells Many /LPF Urine Bacteria Many /HPF (0-FEW) Urine Hyaline Casts Occasional /HPF Urine Mucus Marked /LPF Prothrombin Time 14.3 SEC (11.7-14.0) Prothromb Time International Ratio 1.1 (0.8-1.1) Laboratory Tests Test 03/29/19 12:40 03/29/19 13:27 03/30/19 09:21 White Blood Count 7.9 x10^3/uL (4.0-11.0) Red Blood Count 4.20 x10^6/uL (3.50-5.40) Hemoglobin 13.3 g/dL (12.0-15.5) Hematocrit 39.4 % (36.0-47.0) Mean Corpuscular Volume 94 fL (79-100) Mean Corpuscular Hemoglobin 32 pg (25-35) Mean Corpuscular Hemoglobin Concent 34 g/dL (31-37) Red Cell Distribution Width 13.5 % (11.5-14.5) Platelet Count 92 x10^3/uL (140-400) Neutrophils (%) (Auto) 75 % (31-73) Lymphocytes (%) (Auto) 17 % (24-48) Monocytes (%) (Auto) 6 % (0-9) Eosinophils (%) (Auto) 2 % (0-3) Basophils (%) (Auto) 1 % (0-3) Neutrophils # (Auto) 5.9 x10^3/uL (1.8-7.7) Lymphocytes # (Auto) 1.3 x10^3/uL (1.0-4.8) Monocytes # (Auto) 0.5 x10^3/uL (0.0-1.1) Eosinophils # (Auto) 0.1 x10^3/uL (0.0-0.7) Basophils # (Auto) 0.0 x10^3/uL (0.0-0.2) Sodium Level 142 mmol/L (136-145) Potassium Level 3.9 mmol/L (3.5-5.1) Chloride Level 105 mmol/L (98-107) Carbon Dioxide Level 22 mmol/L (21-32) Anion Gap 15 (6-14) Blood Urea Nitrogen 16 mg/dL (7-20) Creatinine 0.9 mg/dL (0.6-1.0) Estimated GFR (Cockcroft-Gault) 62.1 BUN/Creatinine Ratio 18 (6-20) Glucose Level 224 mg/dL (70-99) Calcium Level 8.8 mg/dL (8.5-10.1) Total Bilirubin 0.8 mg/dL (0.2-1.0) Aspartate Amino Transf (AST/SGOT) 29 U/L (15-37) Alanine Aminotransferase (ALT/SGPT) 39 U/L (14-59) Alkaline Phosphatase 61 U/L (46-116) Troponin I Quantitative < 0.017 ng/mL (0.000-0.055) Total Protein 7.4 g/dL (6.4-8.2) Albumin 3.4 g/dL (3.4-5.0) Albumin/Globulin Ratio 0.9 (1.0-1.7) Lipase 88 U/L (73-393) Urine Collection Type Unknown Urine Color Yellow Urine Clarity Clear Urine pH 5.0 Urine Specific [place] 1.020 Urine Protein Negative mg/dL (NEG-TRACE) Urine Glucose (UA) 250 mg/dL (NEG) Urine Ketones (Stick) Negative mg/dL (NEG) Urine Blood Negative (NEG) Urine Nitrite Negative (NEG) Urine Bilirubin Negative (NEG) Urine Urobilinogen Dipstick 0.2 mg/dL (0.2 mg/dL) Urine Leukocyte Esterase Moderate (NEG) Urine RBC 0 /HPF (0-2) Urine WBC 5-10 /HPF (0-4) Urine Squamous Epithelial Cells Many /LPF Urine Bacteria Many /HPF (0-FEW) Urine Hyaline Casts Occasional /HPF Urine Mucus Marked /LPF Prothrombin Time 14.3 SEC (11.7-14.0) Prothromb Time International Ratio 1.1 (0.8-1.1) Medications Current Medications Sodium Chloride 1,000 ml @ 1,000 mls/hr Q1H IV Last administered on 03/29/19at 12:27; Start 03/29/19 at 11:49; Stop 03/29/19 at 12:48; Status DC Fentanyl Citrate (Fentanyl 2ml Vial) 50 mcg 1X ONCE IV Last administered on 03/29/19at 12:27; Start 03/29/19 at 12:00; Stop 03/29/19 at 12:01; Status DC Ondansetron HCl (Zofran) 4 mg 1X ONCE IV Last administered on 03/29/19at 12:27; Start 03/29/19 at 12:00; Stop 03/29/19 at 12:01; Status DC Iohexol (Omnipaque 300 Mg/ml) 75 ml 1X ONCE IV Last administered on 03/29/19at 13:36; Start 03/29/19 at 13:30; Stop 03/29/19 at 13:31; Status DC Info (CONTRAST GIVEN -- Rx MONITORING) 1 each PRN DAILY PRN MC SEE COMMENTS; Start 03/29/19 at 13:30; Stop 03/31/19 at 13:29 Ondansetron HCl (Zofran) 4 mg PRN Q8HRS PRN IV NAUSEA/VOMITING; Start 03/29/19 at 15:00; Stop 03/30/19 at 14:59 Fentanyl Citrate (Fentanyl 2ml Vial) 50 mcg PRN Q1HR PRN IV PAIN; Start 03/29/19 at 15:00; Stop 03/30/19 at 14:59 Acetaminophen (Tylenol) 650 mg PRN Q4HRS PRN PO FEVER; Start 03/29/19 at 15:00; Stop 03/30/19 at 14:59 Metronidazole 100 ml @ 100 mls/hr 1X ONCE IV Last administered on 03/29/19at 19:03; Start 03/29/19 at 15:00; Stop 03/29/19 at 15:59; Status DC Ciprofloxacin/ Dextrose 200 ml @ 200 mls/hr 1X ONCE IV Last administered on 03/29/19at 15:58; Start 03/29/19 at 15:00; Stop 03/29/19 at 15:59; Status DC Sodium Chloride 1,000 ml @ 75 mls/hr 1X ONCE IV Last administered on 03/29/19at 15:57; Start 03/29/19 at 15:15; Stop 03/30/19 at 04:34; Status DC Cefazolin Sodium/ Dextrose 50 ml @ 100 mls/hr 1X ONCE IV ; Start 03/30/19 at 08:15; Stop 03/30/19 at 08:44; Status DC Ondansetron HCl (Zofran) 4 mg PRN Q6HRS PRN IV NAUSEA/VOMITING; Start 03/30/19 at 08:30; Stop 03/31/19 at 08:29 Fentanyl Citrate (Fentanyl 2ml Vial) 25 mcg PRN Q5MIN PRN IV MILD PAIN 1-3; Start 03/30/19 at 08:30; Stop 03/31/19 at 08:29 Fentanyl Citrate (Fentanyl 2ml Vial) 50 mcg PRN Q5MIN PRN IV MODERATE TO SEVERE PAIN; Start 03/30/19 at 08:30; Stop 03/31/19 at 08:29 Morphine Sulfate (Morphine Sulfate) 1 mg PRN Q10MIN PRN IV SEVERE PAIN 7-10; Start 03/30/19 at 08:30; Stop 03/31/19 at 08:29 Ringer's Solution 1,000 ml @ 30 mls/hr Q24H IV ; Start 03/30/19 at 08:21; Stop 03/30/19 at 20:20 Lidocaine HCl (Xylocaine-Mpf 1% 2ml Vial) 2 ml PRN 1X PRN ID PRIOR TO IV START; Start 03/30/19 at 08:30; Stop 03/31/19 at 08:29 Hydromorphone HCl (Dilaudid) 0.5 mg PRN Q10MIN PRN IV SEV PAIN, Second choice; Start 03/30/19 at 08:30; Stop 03/31/19 at 08:29 Prochlorperazine Edisylate (Compazine) 5 mg PACU PRN PRN IV NAUSEA, MRX1; Start 03/30/19 at 08:30; Stop 03/31/19 at 08:29 Oxycodone/ Acetaminophen (Percocet 5/325) 1 tab PRN Q4HRS PRN PO PAIN; Start 03/30/19 at 08:45 Atorvastatin Calcium (Lipitor) 40 mg QHS PO ; Start 03/30/19 at 21:00 Glipizide (Glucotrol) 5 mg DAILY08 PO ; Start 03/30/19 at 11:00 Oxybutynin Chloride (Ditropan) 5 mg BID PO ; Start 03/30/19 at 09:00 Metformin HCl (Glucophage) 1,000 mg BIDWMEALS PO ; Start 03/31/19 at 17:00 Clonidine HCl (Catapres) 0.1 mg PRN Q1HR PRN PO HYPERTENSION; Start 03/30/19 at 08:45 Famotidine (Pepcid Vial) 20 mg BID IVP ; Start 03/30/19 at 21:00 Active Scripts Active Reported Oxybutynin Chloride 5 Mg Tablet 1 Tab PO BID Aspir-Low (Aspirin) 81 Mg Tablet.dr 1 Tab PO DAILY Glipizide 5 Mg Tablet 5 Mg PO DAILY Atorvastatin Calcium 40 Mg Tablet 40 Mg PO BID Metformin Hcl 1,000 Mg Tablet 1,000 Mg PO BIDWMEALS Vitals/I & O Vital Sign - Last 24 Hours 03/29/19 03/29/19 03/29/19 03/29/19 11:20 12:00 12:27 12:30 Temp 98.4 98.4 Pulse 72 70 72 Resp 18 17 20 18 B/P (MAP) 148/58 (88) 126/60 (82) 155/65 (95) Pulse Ox 94 95 96 95 O2 Delivery Room Air Room Air Room Air Room Air 03/29/19 03/29/19 03/29/19 03/29/19 13:00 14:40 16:01 16:35 Pulse 70 68 62 Resp 16 16 16 B/P (MAP) 133/62 (85) 143/63 (89) 170/76 (107) Pulse Ox 93 95 95 O2 Delivery Room Air Room Air Room Air Room Air 03/29/19 03/29/19 03/29/19 03/30/19 19:00 20:00 23:00 03:00 Temp 98.1 98.9 97.5 98.1 98.9 97.5 Pulse 64 60 62 Resp 18 18 18 B/P (MAP) 146/53 (84) 125/58 (80) 149/81 (103) Pulse Ox 91 95 91 O2 Delivery Room Air Room Air Room Air Room Air 03/30/19 07:00 Temp 97.7 97.7 Pulse 55 Resp 18 B/P (MAP) 130/52 (78) Pulse Ox 94 O2 Delivery Room Air Intake and Output 03/29/19 03/29/19 03/30/19 14:59 22:59 06:59 Intake Total 1000 ml 300 ml 0 ml Balance 1000 ml 300 ml 0 ml GERRY BOWER MD Mar 30, 2019 10:17
[2019-03-30] MEDS ORDERED: PROPOFOL 20 ML IV ONE (10:33)
[2019-03-30] MEDS ORDERED: LIDOCAINE 2% PF 5 ML VIAL. ONE (10:33)
[2019-03-30] MEDS ORDERED: ROCURONIUM 50 MG/5 ML VIAL. ONE (10:34)
[2019-03-30] MEDS ORDERED: fentaNYL PF VIAL 100 MCG/2 ML VIAL ONE (10:34)
[2019-03-30] MEDS: glipiZIDE 5 MG TABLET PO SCH (11:00)
[2019-03-30] MEDS: CIPROFLOXACIN 200MG PREMIX 100 ML IV SCH ×2 (11:30→20:44)
[2019-03-30] MEDS ORDERED: SURGICEL HEMOSTAT 4X8 EACH. ONE (12:08)
[2019-03-30] MEDS ORDERED: BUPIVACAINE-EPI 0.25%-1:200000 MPF 30 ML VIAL. INJ ONE (12:30)
[2019-03-30] MEDS ORDERED: ePHEDrine PF IN SALINE 50 MG/10 ML SYRINGE. IV ONE (14:36)
[2019-03-30] MEDS ORDERED: DEXAMETHASONE SOD PHOS 4 MG/ML VIAL ONE (14:36)
[2019-03-30] MEDS ORDERED: ONDANSETRON PF 4 MG/2 ML VIAL. ONE (14:36)
[2019-03-30] MEDS ORDERED: NEOSTIGMINE METHYLSULFATE 5 MG/5 ML SYRINGE. ONE (14:58)
[2019-03-30] MEDS ORDERED: GLYCOPYRROLATE 1 MG/5 ML VIAL. ONE (14:58)
--- NOTE | 2019-03-30 15:11 | PDOC4 ---
Operative Note Operative Note Date: 03/30/2019 Preoperative diagnosis: Chronic cholecystitis cholelithiasis hemochromatosis with liver cirrhosis Postoperative diagnosis: Same Procedure: Laparoscopic cholecystectomy and Winston-Cut needle liver biopsy Surgeon: Karson Specimen: Gallbladder and liver biopsy Dictation: Patient is a 68-year-old female is better the hospital with right upper quadrant abdominal pain and CT scan showing mild thickening of the gallbladder wall with gallstones and some pericholecystic fluid consistent with cholecystitis. Also known that the patient has hemochromatosis and requested today for liver biopsy in addition to her laparoscopic cholecystectomy. Procedure lap scopic cholecystectomy and liver biopsy were explained to the patient in detail risks benefits were also discussed including bleeding infection injury to intra-abdominal contents possibly necessitating further or open operations alternatives to this procedure also discussed with the patient who seemed to understand and gave both verbal and written consent to have the procedure performed. Patient was taken to the operating room placed in supine position general anesthesia was initiated once patient was sleep and intubated her abdomen was prepped and draped usual sterile fashion using ChloraPrep. Area just below the umbilicus was injected with quarter percent Marcaine with ep inephrine incision made 11 blade scalpel varies needle was placed within the abdomen creating pneumoperitoneum once this complete 11 mm port was placed and a 5 mg camera was placed within the abdomen which was inspected was noted that the liver was quite nodular and enlarged consistent with her cirrhosis of hemochromatosis. At this point a 5 mm port was placed in the epigastrium a 5 mm Port was placed in the right lateral and right mid abdomen the dome of the gallbladder was grasped and retracted cephalad the infundibulum of the gallbladder was grasped and retracted laterally exposing the triangle adherent tissues of the triangle were taken down exposing the cystic duct and cystic artery both were doubly clipped and transected the gallbladder is taken off the liver with hook electrocautery placed in Endo Catch bag and removed from the umbilicus right upper quadrant was irrigated and suctioned dry at this point the Winston-Cut needle biopsy was taken of the anterior liver surface through the epigastric 5 mm port. There was minimal bleeding from the biopsy sites. There is a fair amount of ooze from the raw surface of the gallbladder fossa so Aristra powder was placed within the gallbladder fossa this appeared to control the bleeding. Again the right upper quadrant was irrigated and suctioned dry all ports removed the fascial defect of embolize closed [id number] Vicryl suture and skin was approximate all port sites for septic and a Monocryl Mastisol Steri-Strips and island dressings were applied. Patient was awakened and asked bated operating room taken to recovery in stable condition all sponge instrument needle counts listed as correct S medical blood loss 30 mL. MELODY CABRAL MD Mar 30, 2019 15:11
[2019-03-30] MEDS ORDERED: SEVOFLURANE 61 TO 120 MINUTES. IH ONE (15:12)
[2019-03-30] MEDS: fentaNYL PF VIAL 100 MCG/2 ML VIAL IV PRN ×3 (15:25→15:59)
[2019-03-30] MEDS: MORPHINE SULFATE 2 MG/ML VIAL. IV PRN ×2 (15:43→16:01)
--- NOTE | 2019-03-30 16:04 | NUR ---
SS following up with discharge planning. SS reviewed pt chart. Pt is from home with spouse and is currently on room air. PT/OT ordered and is currently on hold. No discharge needs noted at this time. SS will continue to follow for discharge planning.
[2019-03-30] MEDS: oxyCODONE/APAP 5/325 1 TAB TABLET PO PRN ×2 (17:08→21:07)
[2019-03-30] MEDS: FAMOTIDINE 20 MG/2 ML VIAL IVP SCH (20:44)
[2019-03-30] MEDS ORDERED: ATORVASTATIN CALCIUM 40 MG TABLET. PO SCH (21:00)
[2019-03-31 03:00] VITALS: BP 120/65
[2019-03-31 06:50] LABS: BASO % 0 % (0-3); EOS % 0 % (0-3); HEMATOCRIT 35.4 % (36.0-47.0); HEMOGLOBIN 12.4 g/dL (12.0-15.5); LYMPH % 11 % (24-48); MEAN CORPUSCULAR HEMOGLOBIN 32 pg (25-35); MEAN CORPUSCULAR HGB CONC 35 g/dL (31-37); MEAN CORPUSCULAR VOLUME 93 fL (79-100); MONO # 0.5 x10^3/uL (0.0-1.1); MONO % 6 % (0-9); NEUT # 7.8 x10^3/uL (1.8-7.7); NEUT % 83 % (31-73); PLATELET COUNT 97 x10^3/uL (140-400); RED BLOOD COUNT 3.83 x10^6/uL (3.50-5.40); RED CELL DISTRIBUTION WIDTH 13.1 % (11.5-14.5); WHITE BLOOD COUNT 9.3 x10^3/uL (4.0-11.0)
[2019-03-31 07:00] VITALS: BP 120/49
[2019-03-31 07:02] LABS: CALCIUM 8.8 mg/dL (8.5-10.1); POTASSIUM 4.2 mmol/L (3.5-5.1)
[2019-03-31] MEDS: oxyCODONE/APAP 5/325 1 TAB TABLET PO PRN (08:08)
[2019-03-31] MEDS: glipiZIDE 5 MG TABLET PO SCH (08:08)
[2019-03-31] MEDS: FAMOTIDINE 20 MG/2 ML VIAL IVP SCH (08:08)
[2019-03-31] MEDS: OXYBUTYNIN CHLORIDE 5 MG TABLET PO SCH (08:08)
[2019-03-31] MEDS: CIPROFLOXACIN 200MG PREMIX 100 ML IV SCH (08:09)
--- NOTE | 2019-03-31 08:51 | PDOC ---
LUPE CONNER TOMOGRAPHIC TECH 03/31/19 0850: SURGICAL PROGRESS NOTE Subjective tolerating diet pain managed Vital Signs Vital Signs Date Time Temp Pulse Resp B/P (MAP) Pulse Ox O2 Delivery O2 Flow Rate FiO2 03/31/19 08:11 Room Air 03/31/19 07:00 98.4 60 16 120/49 (72) 94 98.4 03/30/19 23:00 I&O Intake and Output 03/31/19 06:59 Intake Total 1620 ml Output Total 30 ml Balance 1590 ml Intake Oral 120 ml IV Total 1500 ml Output Estimated Blood Loss 30 ml # Voids 4 General: Alert, Cooperative Abdomen: Soft, Other (dressings dry, incisional ttp) Labs Laboratory Tests Test 03/29/19 12:40 03/29/19 13:27 03/30/19 09:21 03/30/19 13:34 White Blood Count 7.9 x10^3/uL (4.0-11.0) Red Blood Count 4.20 x10^6/uL (3.50-5.40) Hemoglobin 13.3 g/dL (12.0-15.5) Hematocrit 39.4 % (36.0-47.0) Mean Corpuscular Volume 94 fL (79-100) Mean Corpuscular Hemoglobin 32 pg (25-35) Mean Corpuscular Hemoglobin Concent 34 g/dL (31-37) Red Cell Distribution Width 13.5 % (11.5-14.5) Platelet Count 92 x10^3/uL (140-400) Neutrophils (%) (Auto) 75 % (31-73) Lymphocytes (%) (Auto) 17 % (24-48) Monocytes (%) (Auto) 6 % (0-9) Eosinophils (%) (Auto) 2 % (0-3) Basophils (%) (Auto) 1 % (0-3) Neutrophils # (Auto) 5.9 x10^3/uL (1.8-7.7) Lymphocytes # (Auto) 1.3 x10^3/uL (1.0-4.8) Monocytes # (Auto) 0.5 x10^3/uL (0.0-1.1) Eosinophils # (Auto) 0.1 x10^3/uL (0.0-0.7) Basophils # (Auto) 0.0 x10^3/uL (0.0-0.2) Sodium Level 142 mmol/L (136-145) Potassium Level 3.9 mmol/L (3.5-5.1) Chloride Level 105 mmol/L (98-107) Carbon Dioxide Level 22 mmol/L (21-32) Anion Gap 15 (6-14) Blood Urea Nitrogen 16 mg/dL (7-20) Creatinine 0.9 mg/dL (0.6-1.0) Estimated GFR (Cockcroft-Gault) 62.1 BUN/Creatinine Ratio 18 (6-20) Glucose Level 224 mg/dL (70-99) Calcium Level 8.8 mg/dL (8.5-10.1) Total Bilirubin 0.8 mg/dL (0.2-1.0) Aspartate Amino Transf (AST/SGOT) 29 U/L (15-37) Alanine Aminotransferase (ALT/SGPT) 39 U/L (14-59) Alkaline Phosphatase 61 U/L (46-116) Troponin I Quantitative < 0.017 ng/mL (0.000-0.055) Total Protein 7.4 g/dL (6.4-8.2) Albumin 3.4 g/dL (3.4-5.0) Albumin/Globulin Ratio 0.9 (1.0-1.7) Lipase 88 U/L (73-393) Urine Collection Type Unknown Urine Color Yellow Urine Clarity Clear Urine pH 5.0 Urine Specific [place] 1.020 Urine Protein Negative mg/dL (NEG-TRACE) Urine Glucose (UA) 250 mg/dL (NEG) Urine Ketones (Stick) Negative mg/dL (NEG) Urine Blood Negative (NEG) Urine Nitrite Negative (NEG) Urine Bilirubin Negative (NEG) Urine Urobilinogen Dipstick 0.2 mg/dL (0.2 mg/dL) Urine Leukocyte Esterase Moderate (NEG) Urine RBC 0 /HPF (0-2) Urine WBC 5-10 /HPF (0-4) Urine Squamous Epithelial Cells Many /LPF Urine Bacteria Many /HPF (0-FEW) Urine Hyaline Casts Occasional /HPF Urine Mucus Marked /LPF Erythrocyte Sedimentation Rate 26 (0-25) Prothrombin Time 14.3 SEC (11.7-14.0) Prothromb Time International Ratio 1.1 (0.8-1.1) Glucose (Fingerstick) 127 mg/dL (70-99) Test 03/30/19 15:21 03/31/19 05:30 Glucose (Fingerstick) 128 mg/dL (70-99) White Blood Count 9.3 x10^3/uL (4.0-11.0) Red Blood Count 3.83 x10^6/uL (3.50-5.40) Hemoglobin 12.4 g/dL (12.0-15.5) Hematocrit 35.4 % (36.0-47.0) Mean Corpuscular Volume 93 fL (79-100) Mean Corpuscular Hemoglobin 32 pg (25-35) Mean Corpuscular Hemoglobin Concent 35 g/dL (31-37) Red Cell Distribution Width 13.1 % (11.5-14.5) Platelet Count 97 x10^3/uL (140-400) Neutrophils (%) (Auto) 83 % (31-73) Lymphocytes (%) (Auto) 11 % (24-48) Monocytes (%) (Auto) 6 % (0-9) Eosinophils (%) (Auto) 0 % (0-3) Basophils (%) (Auto) 0 % (0-3) Neutrophils # (Auto) 7.8 x10^3/uL (1.8-7.7) Lymphocytes # (Auto) 1.0 x10^3/uL (1.0-4.8) Monocytes # (Auto) 0.5 x10^3/uL (0.0-1.1) Eosinophils # (Auto) 0.0 x10^3/uL (0.0-0.7) Basophils # (Auto) 0.0 x10^3/uL (0.0-0.2) Sodium Level 137 mmol/L (136-145) Potassium Level 4.2 mmol/L (3.5-5.1) Chloride Level 100 mmol/L (98-107) Carbon Dioxide Level 28 mmol/L (21-32) Anion Gap 9 (6-14) Blood Urea Nitrogen 15 mg/dL (7-20) Creatinine 1.0 mg/dL (0.6-1.0) Estimated GFR (Cockcroft-Gault) 55.0 Glucose Level 174 mg/dL (70-99) Calcium Level 8.8 mg/dL (8.5-10.1) Laboratory Tests Test 03/30/19 09:21 03/30/19 13:34 03/30/19 15:21 03/31/19 05:30 Erythrocyte Sedimentation Rate 26 (0-25) Prothrombin Time 14.3 SEC (11.7-14.0) Prothromb Time International Ratio 1.1 (0.8-1.1) Glucose (Fingerstick) 127 mg/dL (70-99) 128 mg/dL (70-99) White Blood Count 9.3 x10^3/uL (4.0-11.0) Red Blood Count 3.83 x10^6/uL (3.50-5.40) Hemoglobin 12.4 g/dL (12.0-15.5) Hematocrit 35.4 % (36.0-47.0) Mean Corpuscular Volume 93 fL (79-100) Mean Corpuscular Hemoglobin 32 pg (25-35) Mean Corpuscular Hemoglobin Concent 35 g/dL (31-37) Red Cell Distribution Width 13.1 % (11.5-14.5) Platelet Count 97 x10^3/uL (140-400) Neutrophils (%) (Auto) 83 % (31-73) Lymphocytes (%) (Auto) 11 % (24-48) Monocytes (%) (Auto) 6 % (0-9) Eosinophils (%) (Auto) 0 % (0-3) Basophils (%) (Auto) 0 % (0-3) Neutrophils # (Auto) 7.8 x10^3/uL (1.8-7.7) Lymphocytes # (Auto) 1.0 x10^3/uL (1.0-4.8) Monocytes # (Auto) 0.5 x10^3/uL (0.0-1.1) Eosinophils # (Auto) 0.0 x10^3/uL (0.0-0.7) Basophils # (Auto) 0.0 x10^3/uL (0.0-0.2) Sodium Level 137 mmol/L (136-145) Potassium Level 4.2 mmol/L (3.5-5.1) Chloride Level 100 mmol/L (98-107) Carbon Dioxide Level 28 mmol/L (21-32) Anion Gap 9 (6-14) Blood Urea Nitrogen 15 mg/dL (7-20) Creatinine 1.0 mg/dL (0.6-1.0) Estimated GFR (Cockcroft-Gault) 55.0 Glucose Level 174 mg/dL (70-99) Calcium Level 8.8 mg/dL (8.5-10.1) Problem List Problems Medical Problems: (1) Cholecystitis Status: Acute (2) Enterocolitis Status: Acute (3) UTI (urinary tract infection) Status: Acute Assessment/Plan s/p lap orestes, liver bx possible home later today script on chart, FU 1-2 weeks with MELODY Rico MD 03/31/19 0936: SURGICAL PROGRESS NOTE Assessment/Plan Agree with Tucker assessment and plan LUPE CONNER APRN Mar 31, 2019 08:50 MELODY CABRAL MD Mar 31, 2019 09:36
[2019-03-31 11:00] VITALS: BP 120/68
--- NOTE | 2019-03-31 11:46 | PDOC ---
Subjective: Subjective: Feels better after surgery. Objective: Objective: Nurse called to ask about DC. Vital Signs: Vital Signs Date Time Temp Pulse Resp B/P (MAP) Pulse Ox O2 Delivery O2 Flow Rate FiO2 03/31/19 11:00 97.8 67 18 120/68 (85) 92 Room Air 97.8 03/30/19 23:00 Labs: Laboratory Tests Test 03/30/19 13:34 03/30/19 15:21 03/31/19 05:30 Glucose (Fingerstick) 127 mg/dL 128 mg/dL White Blood Count 9.3 x10^3/uL Red Blood Count 3.83 x10^6/uL Hemoglobin 12.4 g/dL Hematocrit 35.4 % Mean Corpuscular Volume 93 fL Mean Corpuscular Hemoglobin 32 pg Mean Corpuscular Hemoglobin Concent 35 g/dL Red Cell Distribution Width 13.1 % Platelet Count 97 x10^3/uL Neutrophils (%) (Auto) 83 % Lymphocytes (%) (Auto) 11 % Monocytes (%) (Auto) 6 % Eosinophils (%) (Auto) 0 % Basophils (%) (Auto) 0 % Neutrophils # (Auto) 7.8 x10^3/uL Lymphocytes # (Auto) 1.0 x10^3/uL Monocytes # (Auto) 0.5 x10^3/uL Eosinophils # (Auto) 0.0 x10^3/uL Basophils # (Auto) 0.0 x10^3/uL Sodium Level 137 mmol/L Potassium Level 4.2 mmol/L Chloride Level 100 mmol/L Carbon Dioxide Level 28 mmol/L Anion Gap 9 Blood Urea Nitrogen 15 mg/dL Creatinine 1.0 mg/dL Estimated GFR (Cockcroft-Gault) 55.0 Glucose Level 174 mg/dL Calcium Level 8.8 mg/dL PE: GEN: NAD - walks from restroom to bed LUNGS: room air HEART: RRR ABD: soft, mild incisional discomfort NEURO/PSYCH: A & O �3 A/P: Chronic/intermittent lower abd pain, early satiety, and diarrhea Thrombocytopenia, h/o hemochromatosis S/p cholecystectomy and liver biopsy Abnormal CT - segments of ascending colon and SB thickening, hazy density of mesenteric fat, possible cirrhosis, splenomegaly -- DC per primary/surgery. Follow-up in the office in ~2 weeks for biopsy results - our office will contact to schedule. No outside records (colonoscopy, US) received. SCOTTY LOPEZ Mar 31, 2019 11:46
--- NOTE | 2019-03-31 13:10 | NUR ---
Pt. discharged to home with Rx, verbalized understanding of discharge instructions. Abd [facility].
[2019-03-31] MEDS ORDERED: metFORMIN 500 MG TABLET PO SCH (17:00)
--- NOTE | 2019-03-31 22:15 | DS ---
DATE OF DISCHARGE: 03/31/2019 ADMISSION DIAGNOSES: Cholecystitis and urinary tract infection. DISCHARGE DIAGNOSIS: Postop day #1 laparoscopic cholecystectomy. HOSPITAL COURSE: The patient is a pleasant 68-year-old female who presented with cholecystitis and symptomatic gallstones. She was admitted. We consulted Dr. Schulz. We gave her IV antibiotics for her UTI. She went for surgery yesterday. Today, I saw her and examined her. Her heart tones were normal. Lungs were clear. Abdomen was soft. She was tolerating her diet. We plan to discharge with close outpatient followup if okay with her surgeon. DISPOSITION: Home. ACTIVITY: As tolerated. DIET: Low sodium. MEDICATIONS: I gave her a prescription for Cipro 500 b.i.d. and the nurse practitioner left her a prescription for Lortab. TOTAL TIME: 32 minutes. KRISTI SONG DO DR: ALEXIS/abena JOB#: [id number] / [id number]
== END 2019-03-31 13:10 | disposition home or self-care (01) | DRG 418 ==
LOC: ER 10:59 → 4 NORTH 14:57
PROVIDERS: ADMIT Internal Medicine; ATTEND Internal Medicine
PROC: 0FB14ZX Excision of Right Lobe Liver, Percutaneous Endoscopic Approach, Diagnostic (ICD-10-PCS; 2019-03-30)
PROC: 0FT44ZZ Resection of Gallbladder, Percutaneous Endoscopic Approach (ICD-10-PCS; principal; 2019-03-30 12:00)
DX: K80.10 Calculus of gallbladder with chronic cholecystitis without obstruction (principal); N30.00 Acute cystitis without hematuria; K74.60 Unspecified cirrhosis of liver; K52.9 Noninfective gastroenteritis and colitis, unspecified; E11.65 Type 2 diabetes mellitus with hyperglycemia; E78.00 Pure hypercholesterolemia, unspecified; E78.5 Hyperlipidemia, unspecified; E83.119 Hemochromatosis, unspecified; F41.9 Anxiety disorder, unspecified; K63.5 Polyp of colon; Z79.82 Long term (current) use of aspirin; Z83.3 Family history of diabetes mellitus; Z79.84 Long term (current) use of oral hypoglycemic drugs; R81 Glycosuria; E66.9 Obesity, unspecified; Z68.34 Body mass index [BMI] 34.0-34.9, adult; Z79.899 Other long term (current) drug therapy; Z79.4 Long term (current) use of insulin
CPT/HCPCS: 36415; 74177; 80048; 80053; 81001; 82962; 83690; 84484; 85025; 85610; 85651; 87086; 93005; 96374; A7015; J0171; J0696; J0744; J1100; J2001; J2270; J2405; J2704; J2710; J3010; J3490; J7030; J7120; Q9967; 99285-25; G0378